=== PATIENT | female | born 1955 ===

== ENCOUNTER → 2016-04-21 | Day surgery (SDC) | payer OTHER ==
[2016-04-20 15:23] VITALS: Ht 157.5 cm; Wt 61.4 kg
[~2016-04-21] VITALS: Ht 157.5 cm; Wt 61.4 kg
[~2016-04-21] MED LIST: 500ML BSS 0.3ML EPI 1:1000PF IRRIG ONE; ACET-1325; ACETAMINOPHEN 325 MG TAB PO PRN; AMVISC PLUS 0.8ML SYRINGE INT OCU ONE; ATROPINE SULFATE 0.1 MG/ML 5ML SYR IV PRN; AcetaZOLAMIDE 250 MG TAB PO SCH; BETAXOLOL HCL 0.25% OP SUSP PER DROP CHARGE OPL SCH; BRIMONIDINE TART 0.2% OP SOLN PER DROP CHARGE ONE; BSS FLUSH ONE; ENDOCOAT 0.85ML SYRINGE INT OCU ONE; EpHEDrine SULFATE INJ 50 MG/ML AMP IV PRN; EpINEphrine INJ 1MG/ML AMP 1 MG/ML AMP ONE; FENTANYL CITRATE INJ 50 MCG/1 ML 2 ML VIAL IV PRN; FLUMAZENIL 0.1 MG/1 ML 10 ML VIAL IV PRN; FOLI1TAB7 PO; HYDROmorphone INJ 2 MG/ML SYR/VIAL IV PRN; LABETALOL HCL IV 5 MG/ML 20ML IV PRN; LACTATED RINGER'S 1000ML 500 ML IV SCH; LEVO125T4 PO; LIDOCAINE 4% OP SOLN DROP CHARGE ONE; LIDOCAINE 4% OP SOLN DROP CHARGE OPL SCH; LIDOCAINE HCL 1% MPF 2 ML VIAL ONE; MEPERIDINE HCL 25 MG/ML CARP IV PRN; METH2.5T PO; MIDAZOLAM HCL 1 MG/ML 2ML VIAL ONE; MINO100C22 PO; MIX: 4ML BSS 1ML EPI 1:1000 PF INSTIL ONE; MOXIFLOXACIN OPH SOLN PER DROP CHARGE ONE; NALOXONE HCL 0.4 MG/1 ML VIAL/CARP IV PRN; NAPR-1169 PO; OCUCOAT 1 ML SOLN IO ONE; OFLO0.3S OP; OMEP40CA PO; ONDANSETRON INJ 2 MG/ML 2 ML VIAL IV PRN; PHENYLEPHRINE 100MCG/ML 5ML SYR IV PRN; POVIDONE-IODINE OP SOLN 30 ML BTL ONE; PRED1SUS3 OPL; PROPARACAINE 0.5% OP SOLN PER DROP CHARGE OPL SCH; TOBRAMYCIN/DEXAMETHASONE OPH OINT PER APPLN CHARGE ONE
--- NOTE | 2016-04-21 11:43 | History & Physical Bridge - [place] ---
H&P Re-Evaluation Bridge Note: I have examined the patient, reviewed the History & Physical and in the interval since the performance of the History & Physical I have noted the following changes of clinical significance: No changes noted
[2016-04-21] MEDS: PHENYLEPHRINE HCL 2.5% OP SOLN PER DROP CHARGE OPL SCH ×2 (12:14→12:19)
[2016-04-21] MEDS: TROPICAMIDE 1% OP SOLN PER DROP CHARGE OPL SCH ×2 (12:15→12:20)
[2016-04-21] MEDS: CYCLOPENTOLATE HCL 1% OP SOLN PER DROP CHARGE OPL SCH ×2 (12:16→12:21)
[2016-04-21] MEDS: MOXIFLOXACIN OPH SOLN PER DROP CHARGE OPL SCH ×2 (12:17→12:22)
--- NOTE | 2016-04-21 13:06 | Discharge Instructions-SurgCtr ---
Discharge Instructions Visit Reason for Visit: Cataract Left Eye Discharge Goals Goal(s): Improve function Activity Recommendations Lifting Limitations: no more than 10 pounds Exercise/Sports Limitations: gradually increase as tolerated May Resume Sexual Activity: when tolerated Shower/Bathe: tomorrow Driving or Machine Use: resume 1 day after discharge Anesthesia . Post Anesthesia Instructions: If you have had General Anesthesia or IV Sedation: * Do not drive today. * Resume driving when surgeon permits. * Do not make important decisions or sign legal documents today. * Call surgeon for: 1. Temperature elevations greater than 101 degrees F. 2. Uncontrollable pain. 3. Excessive bleeding. 4. Persistent nausea and vomiting. 5. Medication intolerance (nausea, vomiting or rash). * For nausea and vomiting use only clear liquids such as: tea, soda, bouillon until nausea subsides, then gradually increase diet as tolerated. * If you have any concerns or questions, call your surgeon's office. If physician is unavailable and it is an emergency, call 911 or go to the nearest emergency room. . Instructions / Follow-Up Instructions / Follow-Up ACTIVITY RECOMMENDATIONS: * Light activities. * Mild irritation and blurred vision are common for the first few days. * You may walk outside, read, watch television. * Redness around the white part of the eye is common. MEDICATIONS: Resume previous medications unless instructed otherwise by your surgeon. * Take white Diamox (Acetazolamide) tablet at 4 pm today. Start all eye drops at 4 pm today: * Eye drops (today and tomorrow): Prednisone - one drop in operative eye every 3 hours while awake Ofloxacin - one drop in operative eye every 3 hours while awake SPECIAL CARE INSTRUCTIONS: * Tape plastic shield over eye to sleep at night. Call your doctor at with any concerns or problems. FOLLOW UP VISIT: Follow-up with Dr Carolina at [place] office as scheduled. Diet Recommendations Home Diet: resume previous diet Medical Emergencies . Who to Call and When: Medical Emergencies: If at any time you feel your situation is an emergency, please call 911 immediately. . Non-Emergent Contact . . "Provider Documentation" section prepared by Eusebio Carolina.
[2016-04-21] MEDS: VISCOAT 0.5ML SYRINGE INT OCU ONE (13:20)
--- NOTE | 2016-04-21 13:28 | [facility] Post Operative Brief Note ---
Immediate Operative Summary Operative Date Apr 21, 2016. Pre-Operative Diagnosis Cataract Left Eye Post-Operative Diagnosis Same Procedure(s) Performed Left Cataract Phacoemulsification With Intraocular Lens Implant Surgeon Dr. Carolina Cut Off Saw Set Up Operator Surgeon(s) None Estimated Blood Loss None Findings Cortical cataract left eye Fluids (cc crystalloids) 300 ml Specimens None Drains none Anesthesia L/S Complication(s) None Disposition Recovery Room / PACU
[2016-04-21 13:48] VITALS: BP 112/78; PULSE 79; TEMP 36.5; O2SAT 98
--- NOTE | 2016-04-21 13:52 | Anesthesia Progress Nt - [facility] ---
Anesthesia Post Op Note Date & Time Apr 21, 2016 at 13:52 Vital Signs Pain Intensity: 0 Vital Signs Past 12 Hours Date Time Temp Pulse Resp B/P Pulse Ox O2 Delivery O2 Flow Rate FiO2 04/21/16 13:30 36.1 65 16 122/79 99 Room Air 04/21/16 12:02 36.8 76 20 119/81 100 Room Air Notes Mental Status: alert / awake / arousable, participated in evaluation Pt Amnestic to Procedure: Yes Nausea / Vomiting: adequately controlled Pain: adequately controlled Airway Patency, RR, SpO2: stable & adequate BP & HR: stable & adequate Hydration State: stable & adequate Anesthetic Complications: no major complications apparent
--- NOTE | 2016-04-21 14:27 | OPERATIVE REPORT ---
DATE OF OPERATION: 04/21/2016 PREOPERATIVE DIAGNOSIS: Presenile cortical cataract, left eye. POSTOPERATIVE DIAGNOSIS: Same. PROCEDURE: Phacoemulsification of left cataract with posterior chamber lens implant, type Bausch \T\ Lomb, model Hoya iSert [id number], power +21.0 Diopters. ANESTHESIA: Local standby. SURGEON: Dr. Carolina. COMPLICATIONS: None. OPERATING TIME: 10 minutes. OPERATION AND FINDINGS: PROCEDURE: The left pupil was dilated. The anesthetic was administered using a left technique. The left eye was prepped and draped. A speculum was placed. A paracentesis was placed. The chamber was filled with Amvisc Plus and EndoCoat. Epinephrine solution was used. A clear corneal incision was formed. A capsulorrhexis was performed. The nucleus was hydrodissected. The lens was removed with phacoemulsification. Time was 1.63 seconds. The aspiration unit was used to remove the cortex. The capsule was filled with Amvisc Plus. The lens implant was folded and placed into the capsule. The incision was hydrated. The Amvisc was aspirated. The wound was secure. The chamber was deep. The pupil was round. Bromonidine and TobraDex ointment and Vigamox solution were placed. The speculum was removed. DISPOSITION: The patient was returned to the recovery room in stable condition. I attest to the content of the Intraoperative Record and any orders documented therein. Any exceptions are noted below. I attest to the content of the Intraoperative Record and any orders documented therein. Any exceptions are noted below. KYLE
== END | disposition home or self-care (01) ==
LOC: X.SURG 11:26
PROVIDERS: ATTEND Specialist
DX: H25.012 Cortical age-related cataract, left eye (principal)

== ENCOUNTER → 2016-05-26 | Day surgery (SDC) | payer OTHER ==
[2016-05-17 07:50] VITALS: Ht 157.5 cm; Wt 61.4 kg
[~2016-05-26] VITALS: Ht 157.5 cm; Wt 61.4 kg
[~2016-05-26] MED LIST changes: -BETAXOLOL HCL 0.25% OP SUSP PER DROP CHARGE OPL SCH; +BETAXOLOL HCL 0.25% OP SUSP PER DROP CHARGE OPR SCH; -ENDOCOAT 0.85ML SYRINGE INT OCU ONE; -FENTANYL CITRATE INJ 50 MCG/1 ML 2 ML VIAL IV PRN; -FLUMAZENIL 0.1 MG/1 ML 10 ML VIAL IV PRN; -HYDROmorphone INJ 2 MG/ML SYR/VIAL IV PRN; -LABETALOL HCL IV 5 MG/ML 20ML IV PRN; -LIDOCAINE 4% OP SOLN DROP CHARGE OPL SCH; +LIDOCAINE 4% OP SOLN DROP CHARGE OPR SCH; -MEPERIDINE HCL 25 MG/ML CARP IV PRN; -NALOXONE HCL 0.4 MG/1 ML VIAL/CARP IV PRN; -ONDANSETRON INJ 2 MG/ML 2 ML VIAL IV PRN; -PHENYLEPHRINE 100MCG/ML 5ML SYR IV PRN; -PROPARACAINE 0.5% OP SOLN PER DROP CHARGE OPL SCH; +PROPARACAINE 0.5% OP SOLN PER DROP CHARGE OPR SCH; +VISCOAT 0.5ML SYRINGE INT OCU ONE
[2016-05-26] MEDS: PHENYLEPHRINE HCL 2.5% OP SOLN PER DROP CHARGE OPR SCH ×2 (08:59→09:04)
[2016-05-26] MEDS: TROPICAMIDE 1% OP SOLN PER DROP CHARGE OPR SCH ×2 (09:00→09:05)
[2016-05-26] MEDS: CYCLOPENTOLATE HCL 1% OP SOLN PER DROP CHARGE OPR SCH ×2 (09:01→09:06)
[2016-05-26] MEDS: MOXIFLOXACIN OPH SOLN PER DROP CHARGE OPR SCH ×2 (09:02→09:12)
--- NOTE | 2016-05-26 09:59 | Discharge Instructions-SurgCtr ---
Discharge Instructions Visit Reason for Visit: Cataract Right Eye Discharge Discharge Diagnosis / Problem: lens implant right eye Discharge Goals Goal(s): Improve function Activity Recommendations Activity Limitations: resume your previous activity Lifting Limitations: no more than 10 pounds Exercise/Sports Limitations: gradually increase as tolerated May Resume Sexual Activity: when tolerated Shower/Bathe: tomorrow Driving or Machine Use: resume 1 day after discharge Anesthesia . Post Anesthesia Instructions: If you have had General Anesthesia or IV Sedation: * Do not drive today. * Resume driving when surgeon permits. * Do not make important decisions or sign legal documents today. * Call surgeon for: 1. Temperature elevations greater than 101 degrees F. 2. Uncontrollable pain. 3. Excessive bleeding. 4. Persistent nausea and vomiting. 5. Medication intolerance (nausea, vomiting or rash). * For nausea and vomiting use only clear liquids such as: tea, soda, bouillon until nausea subsides, then gradually increase diet as tolerated. * If you have any concerns or questions, call your surgeon's office. If physician is unavailable and it is an emergency, call 911 or go to the nearest emergency room. . Instructions / Follow-Up Instructions / Follow-Up ACTIVITY RECOMMENDATIONS: * Light activities. * Mild irritation and blurred vision are common for the first few days. * You may walk outside, read, watch television. * Redness around the white part of the eye is common. MEDICATIONS: Resume previous medications unless instructed otherwise by your surgeon. * Take white Diamox (Acetazolamide) tablet at 1 pm today. Start all eye drops at 1 pm today: * Eye drops (today and tomorrow): Prednisone - one drop in operative eye every 3 hours while awake Ofloxacin - one drop in operative eye every 3 hours while awake SPECIAL CARE INSTRUCTIONS: * Tape plastic shield over eye to sleep at night. Call your doctor at with any concerns or problems. FOLLOW UP VISIT: Follow-up with Dr Carolina at [place] office as scheduled. Diet Recommendations Home Diet: no limitations Procedures Procedures Performed: cataract extraction with lens implant Pending Studies Studies pending at discharge: no Medical Emergencies . Who to Call and When: Medical Emergencies: If at any time you feel your situation is an emergency, please call 911 immediately. . Non-Emergent Contact Non-Emergency issues call your: [place] Call Non-Emergent contact if: your pain is not controlled [phone] . . "Provider Documentation" section prepared by Eusebio Carolina.
--- NOTE | 2016-05-26 10:01 | [facility] Operative Report ---
Operative Report Date of Service May 26, 2016. Operative Report 1. PREOPERATIVE DIAGNOSIS: Pre Senile Cortical cataract, right eye. 2. POSTOPERATIVE DIAGNOSIS: Pre Senile Cortical cataract, right eye. 3. PROCEDURE: Phacoemulsification of right cataract with posterior chamber lens implant, type Bausch & Lomb, model Hoya [id number], power +21.5 diopters. ANESTHESIA: Local standby. SURGEON: Dr. Carolina. COMPLICATIONS: None. OPERATING TIME: 10 minutes. 4. OPERATION AND FINDINGS: DESCRIPTION OF PROCEDURE: The right pupil was dilated. The anesthetic was administered using a topical technique. The right eye was prepped and draped. A speculum was placed. A clear corneal incision was formed. The chamber was filled with Amvisc Plus and Viscoat. Epinephrine solution was used. A paracentesis was placed. A capsulorrhexis was performed. The nucleus was hydrodissected. The lens was removed with phacoemulsification. Time was 1.30 seconds. The aspiration unit was used to remove the cortex. The capsule was filled with Amvisc Plus. The lens implant was folded and placed into the capsule. The incision was hydrated. The Amvisc was aspirated. The wound was secure. The chamber was deep. The pupil was round. TobraDex ointment and Vigamox solution were placed. The speculum was removed. The patient was returned to the Recovery Room in stable condition. I attest to the content of the Intraoperative Record and any orders documented therein. Any exceptions are noted below. The scribe's documentation has been prepared in my presence, under my direction and personally reviewed by me in its entirety. I confirm that the note above accurately reflects all work, treatment, procedures, and medical decision making performed by me. I personally scribed for Eusebio Carolina M.D. ([facility]EL) on 05/26/16 at 10:01. Electronically submitted by Selam Layne ([facility]).
[2016-05-26 10:05] VITALS: TEMP 36.5
--- NOTE | 2016-05-26 10:19 | Anesthesia Progress Nt - [facility] ---
Anesthesia Post Op Note Date & Time May 26, 2016 at 10:19 Vital Signs Pain Intensity: 0 Vital Signs Past 12 Hours Date Time Temp Pulse Resp B/P Pulse Ox O2 Delivery O2 Flow Rate FiO2 05/26/16 10:05 36.5 73 16 131/82 98 Room Air 05/26/16 08:49 36.4 82 22 128/86 99 Room Air Notes Mental Status: alert / awake / arousable, participated in evaluation Pt Amnestic to Procedure: Yes Nausea / Vomiting: adequately controlled Pain: adequately controlled Airway Patency, RR, SpO2: stable & adequate BP & HR: stable & adequate Hydration State: stable & adequate Anesthetic Complications: no major complications apparent
[2016-05-26 10:22] VITALS: BP 120/78; PULSE 80; O2SAT 100
== END | disposition home or self-care (01) ==
LOC: X.SURG 08:38
PROVIDERS: ATTEND Specialist
DX: H25.011 Cortical age-related cataract, right eye (principal); M19.90 Unspecified osteoarthritis, unspecified site; Z68.25 Body mass index [BMI] 25.0-25.9, adult; Z98.42 Cataract extraction status, left eye; Z98.890 Other specified postprocedural states; Z87.891 Personal history of nicotine dependence

== ENCOUNTER 2020-05-06 19:05 | Observation (INO) ==
--- OUTSIDE RECORDS SUMMARY | 2020-05-06 19:07 | External Medical Summary | Continuity of Care Document ---
:1955 Author Name Ashly Quezada, Provider Address Unavailable Unavailable , Care Team Providers Name Role Phone Uma Bar[place] M.D.[place] [place] Problems:Rheumatoid arthritisEncounter for long-term (current) use of medications Problems Raynauds phenomenon (443.0) (I73.00) Encounter for long-term (current) use of medications (V58.69 ) (Z79.899) Rheumatoid arthritis (714.0) (M06.9) Arthritis (716.90) (M19.90) Osteoporosis (733.00) (M81.0) Hypothyroidism (244.9) (E03.9) Anemia (285.9) (D64.9) Pain in hand (729.5) (M79.643) Allergies and Adverse Reactions No Known Drug Allergies (Allergy) Medications Pantoprazole Sodium 40 MG Oral Tablet Delayed Release; TAKE 1 TABLET DAILY. Refills: 0 Levothyroxine Sodium 125 MCG Oral Tablet; TAKE 1 TABLET REJI Y. Refills: 0 Premarin 0.625 MG/GM Vaginal Cream Refills: 0 Calcium 600/Vitamin D CHEW Refills: 0 Stool Softener 100 MG Oral Capsule; TAKE 1 CAPSULE TWICE JOHNNA LY. Refills: 0 MiraLax POWD Refills: 0 Naproxen 500 MG Oral Tablet; TAKE 1 TABLET EVERY 12 HO URS WITH FOOD. Damien Barron Start: 03-Oct-2013 Quantity: 180 Refills: 1 Folic Acid 1 MG Oral Tablet; TAKE 1 TABLET DAILY. Damien Barron Start: 09-Nov-2013 Quantity: 90 Refills: 3 Methotrexate 2.5 MG Oral Tablet; TAKE 6 TABLETS EVERY WEEK Damien Sue Start: 09-Nov-2013 Quantity: 72 Refills: 1 Procedures History of Tubal Ligation Status: Comple alexx History of Breast Surgery Enlargement Procedure Status: Completed Immunizations Immunizations not documented Family History Unknown Family Member Family history of Cancer Status: Active Comments: Famil y History Family history of Diabetes Mellitus (V18.0) Status: Active Comments: Family History Family history of Hypertension (V17.49) Status: Active Comments: Family History Family history of Hypothyroidism Status: Active Comment s: Family History Family history of Heart Disease (V17.49) Status: Active Comments: Family History Social History - Smoking Status Ex-smoker Interventions InstructionsCall if: Your joints are red or painful.; Done: 03 Jun 2014Discussion/[id number] y.o. female with RAReviewed labs from Apr -- as has been her usual, inflammatory markers WNL; CBC and CMP grossly WNL. Had been concerned about possible lack of complete control of her RA sx with MTX monotherapy -- at this point, her joints actually appear significantly better with really no synovitis noted and subjective improvement reported by pt. Will continue with MTX 6 tablets weekly for now but did review with ptfindings which might suggest increase in medication regimen (prolonged AM stiffness, increased swelling, etc). She is aware to continue with monitoring labs every 8 weeks (CBC, CMP, ESR, CRP). She doeshave other pains in her hand still (DIP, thumb) which really seem most c/w OA; she is continuing on a daily Aleve for that. Pt is aware that I will be leaving the practice and that a formal letter willbe sent out shortly with recommendations for other rheumatologists with whom she may establish. Pt aware until I leave, she is welcome to call if anything new arises. Pt agreeable to plan. Plan of Treatment Planned Observations Planned Goals not documented Results No Known Results Results not documented Encounters Appointment; Uma Barron M.D. 03-Jun-2014 8:40 Encounter Diagnosis: Problem not documented
--- OUTSIDE RECORDS SUMMARY | 2020-05-06 19:08 | External Medical Summary | Continuity of Care Document ---
:1955 Author Name Ashly Quezada, Provider Address Unavailable Unavailable , Care Team Providers Name Role Phone Uma Barron M.D.@[email or web address] [place] Assessments Assessed Problems:Rheumatoid arthritisEncounter for long-term (current) use of medications Problems Anemia (285.9) (D64.9) Hypothyroidism (244.9) (E03.9) Osteoporosis (733.00) (M81.0) Arthritis (716.90) (M19.90) Raynauds phenomenon (443.0) (I73.00) Pain in hand (729.5) (M79.643) Rheumatoid arthritis (714.0) (M06.9) Encounter for long-term (current) use of medications (V58.69 ) (Z79.899) Allergies and Adverse Reactions No Known Drug [...] Barron Start: 03-Oct-2013 Quantity: 180 Refills: 1 Methotrexate 2.5 MG Oral Tablet; TAKE 6 TABLETS EVERY WEEK Damien Sue Start: 09-Nov-2013 Quantity: 72 Refills: 1 Folic Acid 1 MG Oral Tablet; TAKE 1 TABLET DAILY. Damien Barron Start: 09-Nov-2013 Quantity: 90 Refills: 3 Procedures History of Tubal Ligation Status: Comple [...] are red or painful.; Done: 03 Jun 2014Discussion/[id number] y.o. female with RAReviewed labs from Apr [...]
[2020-05-06] MEDS ORDERED: SODIUM CHLORIDE 0.9% 500 ML IV SCH (19:15)
[2020-05-06] MEDS ORDERED: ONDANSETRON INJ 2 MG/ML 2 ML VIAL IV STA (19:29)
[2020-05-06] MEDS ORDERED: HYDROmorphone INJ 0.5 MG/0.5 ML SYR IV PRN (19:29)
--- NOTE | 2020-05-06 19:31 | XRay Report ---
SINGLE VIEW CHEST CLINICAL HISTORY: Atypical chest pain. FINDINGS: An AP, portable, upright chest radiograph is compared to study dated 01/22/2010. The cardio mediastinal silhouette is unremarkable. There is mild elevation of the right hemidiaphragm and bibasi lar atelectasis. No airspace consolidation or large pleural effusion is identified. No pneumothorax i s seen. The skeletal structures are osteopenic. The bony thorax is grossly intact. Cholecystectomy cl ips are seen in the right upper quadrant. IMPRESSION: No active disease in the chest. ACT 112: Negative or not required by law. Electronically signed by: Tee Mccracken M.D. 05/06/2020 7:30 PM
[2020-05-06 19:33] LABS: Hematocrit (blood only) 42.1 % (37-47); Hemoglobin 14.9 g/dL (12.0-16.0); Immature Granulocytes # (auto) 0.02 K/uL (0.00-0.02); Immature Granulocytes % (auto) 0.2 %; Lymphocytes # (auto) 1.51 K/uL (1.2-3.4); Lymphocytes % (auto) 17.4 %; Mean Corpuscular Hgb Conc 35.4 g/dL (32-36); Mean Corpuscular Volume 90.3 fL (80-100); Mean Platelet Volume 10.6 fL (7.4-10.4); Monocytes # (auto) 0.32 K/uL (0.11-0.59); Monocytes % (auto) 3.7 %; Neutrophils # (auto) 6.85 K/uL (1.4-6.5); Neutrophils % (auto) 78.7 %; Platelet Count 223 K/uL (130-400); RDW Coefficient of Variation 12.1 % (11.5-14.5); RDW Standard Deviation 39.5 fL (36.4-46.3); Red Blood Count 4.66 M/uL (4.2-5.4)
--- NOTE | 2020-05-06 19:34 | Emergency Department Note ---
Impression & Plan Substernal chest pain ED Provider Note INFORMANT: Patient ED PROVIDER(S): Joon Morin MD CHIEF COMPLAINT: Chest pain PLAN: Disposition: Admitted Condition: Good Outpatient prescription management: none Referral: None MEDICAL DECISION MAKING: Patient presented complaining of substernal chest pain. She was evaluated. Her ECG did not reveal any acute findings. Chest x-ray was negative except for a scant amount of free air under the right hemidiaphragm consistent with her recen t surgery. She had a benign abdominal examination. Her CBC and chemistry panel were unremarkable. Troponin was within normal limits but not 0. The patient was treated with Zofran and Dilaudid. On reassessment she felt significantly better. Her blood pressure and tachycardia were significantly improved. The patient was hydrated. She was given oral aspirin. Given the chest pain and stress of recent surgery further management in the hospital was felt to be appropriate to rule out cardiac etiology. Consultation was made with Dr. Aldo Trent, [facility] hospitalist service. The patient was evaluated in the ER for further management. Triage Nursing notes reviewed and agree them. Vital Signs: reviewed and remarkable for retention and tachycardia Differential diagnosis: Postoperative pain, cardiac ischemia, aortic dissection, pulmonary embolism, pneumothorax, pneumonia, pericarditis, myocarditis, esophageal rupture, GERD, cholecystitis, pancreatitis, musculoskeletal, as well as other pathologies. Diagnostics interpreted by me: ECG: Twelve-lead ECG reveals sinus tachycardia 105 bpm. Left atrial enlargement. LVH present. No ST elevation or depression. No PVCs or PACs. Normal axis. Normal QRS. Cardiac Monitoring: Cardiac monitoring ordered by me: The patient was placed on continuous cardiac monitoring and observed. It revealed a normal sinus rhythm at 98 beats per minute without ectopy or evidence of dysrhythmia. Imaging studies: Imaging studies: Chest x-ray. Findings: A chest x-ray was performed and revealed no pneumothorax, effusion, infiltrate, pulmonary edema, or wide mediastinum. There is a scant amount of free air noted under the right hemidiaphragm. HPI: The patient is a 64 year old female who presents to the Emergency Room with complaints of social chest pain. This started this afternoon and is described as pressure. The patient also notes the following associated symptoms, nausea, vomiting, mild headache. The patient has tried a Percocet and Tylenol at home for relieving factors. Current pain is rated as 7/10. Patient had a cholecystectomy done at [facility] surgery center today. She went home and was feeling well. She began to have pain and headache. She took a Percocet and one Tylenol. The pain worsened. She came to the emergency department. She began to have nausea and vomiting in triage. Pt denies LOC, headache, fevers, chills, diaphoresis, visual changes, neck pain, breathing d ifficulties, abdominal pain, back pain, melena, hematochezia, urinary symptoms, numbness, weakness, lymphadenopathy, rash, or other complaints. ROS: See above HPI for pertinent positives & negatives. A total of 10 systems reviewed and were otherwise negative. PAST MEDICAL HISTORY:See Below , hypertension PAST SURGICAL HISTORY:See Below, cholecystectomy FAMILY HISTORY:See Below SOCIAL HISTORY:See Below, non-smoker HOME MEDICATIONS:See Below ALLERGIES:See Below VITALS:See Below PHYSICAL EXAMINATION: GENERAL: Awake, alert, uncomfortable-appearing, in mild distress HENT: Normocephalic, atraumatic. Oropharynx unremarkable. EYES: Normal conjunctiva. Sclera non-icteric. NECK: Inspection normal. Non-tender. Supple. No nuchal rigidity. FROM. No mas ses. RESPIRATORY: Clear to auscultation. No wheezes. No rales. Normal respiratory effort. CARDIAC: Tachycardic rate. Normal rhythm. No murmurs. No rubs. Extremities warm and well perfused. Pulses equal. No JVD. GI: Soft, non-distended. Minimal upper gas tenderness to palpation. No rebound or guarding. No masses. RECTAL: Deferred. MUSCULOSKELETAL: Atraumatic. Chest examination reveals no tenderness. The back is symmetrical on inspection without obvious abnormality. There is no CVA tenderness to palpation. No joint edema. LOWER EXTREMITIES: Calves are equal size bilaterally and non-tender. No edema. No discoloration. NEURO: Normal sensorium. No sensory or motor deficits noted. SKIN: No rash or jaundice noted. Joon Morin MD Past Med/Surg History Medical History (Updated 05/06/20 @ 21:36 by Vianey Saini PA-C) CREST syndrome Dyslipidemia Hypothyroidism Mixed connective tissue disease Rheumatoid arthritis Surgical History (Updated 05/06/20 @ 21:36 by Vianey Saini PA-C) History of breast implant History of cholecystectomy History of colonoscopy Family History (Updated 05/06/20 @ 21:34 by Vianey Saini PA-C) Other Heart disease Liver cancer Social History Smoking Status: Former smoker Smoking End Date: 2006; Hx Alcohol Use: Yes Alcohol type: wine Alcohol Intake Frequency: 2-3 x/Week Feels Safe at Home: Yes Allergies Allergies Allergy/AdvReac Type Severity Reaction Status Date / Time No Known Allergies Allergy Unknown UNKNOWN Verified 05/06/20 20:22 Home Meds Home Medications Medication Instructions Recorded Confirmed adalimumab [Humira Pen] 40 mg SUBCUT .Q2WK 05/06/20 05/06/20 calcium carbonate-vitamin D3 1 tab PO DAILY 05/06/20 05/06/20 [Calcium 600 + D(3)] docusate sodium [Colace] 100 mg PO BID 05/06/20 05/06/20 levothyroxine [Levoxyl] 125 mcg PO DAILY 05/06/20 05/06/20 multivitamin 1 tab PO DAILY 05/06/20 05/06/20 oxycodone-acetaminophen 1 tab PO Q6H PRN 05/06/20 05/06/20 pantoprazole 40 mg PO BID 05/06/20 05/06/20 Results & Data (ED) Vital Signs Vital Signs - 24 hr 05/06/20 19:07 05/06/20 19:19 05/06/20 19:23 Temperature 37.5 C Temperature Source Oral Pulse Rate 137 H 104 H 109 H Pulse Rate from SpO2 Sensor 104 H 110 H Respiratory Rate 16 20 15 Respiratory Effort / Characteristics Non-Labored Spontaneous Respiratory Depth Normal Respiratory Pattern Regular Blood Pressure 186/124 H 156/104 H 155/95 H Blood Pressure Mean 144 121 115 Pulse Oximetry 97 96 96 Oxygen Delivery Method Room Air Room Air Room Air Sepsis Recent Fever Within 48 Hours No Sepsis New/Unexplained Change in Mental Status No Sepsis Action Taken by Nursing No Action Required 05/06/20 19:27 05/06/20 20:30 05/06/20 20:39 Temperature Temperature Source Pulse Rate 87 86 Pulse Rate from SpO2 Sensor 87 86 Respiratory Rate 13 24 Respiratory Effort / Characteristics Respiratory Depth Respiratory Pattern Blood Pressure 125/79 Blood Pressure Mean 94 Pulse Oximetry 96 95 96 Oxygen Delivery Method Room Air Room Air Sepsis Recent Fever Within 48 Hours Sepsis New/Unexplained Change in Mental Status Sepsis Action Taken by Nursing 05/06/20 21:00 Temperature Temperature Source Pulse Rate 79 Pulse Rate from SpO2 Sensor 78 Respiratory Rate 15 Respiratory Effort / Characteristics Respiratory Depth Respiratory Pattern Blood Pressure 125/79 Blood Pressure Mean 94 Pulse Oximetry 95 Oxygen Delivery Method Sepsis Recent Fever Within 48 Hours Sepsis New/Unexplained Change in Mental Status Sepsis Action Taken by Nursing Laboratory Data Result diagrams: 05/06/20 19:20 05/06/20 19:20 Lab Results 05/06/20 05/06/20 05/06/20 Range/Units 19:20 19:20 19:20 WBC 8.70 (4.8-10.8) K/uL RBC 4.66 (4.2-5.4) M/uL Hgb 14.9 (12.0-16.0) g/dL Hct 42.1 (37-47) % MCV 90.3 (80-100) fL MCH 32.0 (25-34) pg MCHC 35.4 (32-36) g/dL RDW Std Deviation 39.5 (36.4-46.3) fL RDW Coeff of Kristie 12.1 (11.5-14.5) % Plt Count 223 (130-400) K/uL MPV 10.6 H (7.4-10.4) fL Immature Gran % (Auto) 0.2 % Neut % (Auto) 78.7 % Lymph % (Auto) 17.4 % Barbour % (Auto) 3.7 % Eos % (Auto) 0.0 % Baso % (Auto) 0.0 % Neut # (Auto) 6.85 H (1.4-6.5) K/uL Lymph # (Auto) 1.51 (1.2-3.4) K/uL Barbour # (Auto) 0.32 (0.11-0.59) K/uL Eos # (Auto) 0.00 (0-0.5) K/uL Baso # (Auto) 0.00 (0-0.2) K/uL Immature Gran # (Auto) 0.02 (0.00-0.02) K/uL APTT 26.8 (21.0-31.0) Seconds PTT Ratio 1.0 Sodium 136 (136-145) mmol/L Potassium 3.9 (3.5-5.1) mmol/L Chloride 102 (98-107) mmol/L Carbon Dioxide 25 (21-32) mmol/L Anion Gap 9.0 (3-11) BUN 8 (7-18) mg/dl Creatinine 0.83 (0.6-1.2) mg/dl Est Cr Clr Drug Dosing 54.2 ml/min Est GFR ( Amer) 86.4 Est GFR (Non-Af Amer) 74.5 BUN/Creatinine Ratio 9.2 L (10-20) Glucose 153 H (70-99) mg/dl Calcium 8.9 (8.5-10.1) mg/dl Total Bilirubin 0.3 (0.2-1) mg/dl AST 50 H (15-37) U/L ALT 67 (12-78) U/L Alkaline Phosphatase 85 (45-117) U/L Troponin I 0.032 (0-0.045) ng/ml Total Protein 8.7 H (6.4-8.2) gm/dl Albumin 4.3 (3.4-5.0) gm/dl Globulin 4.4 H (2.5-4.0) gm/dl Albumin/Globulin Ratio 1.0 (0.9-2) Lipase 45 L (73-393) U/L COVID-19 Eval Order SARS-CoV-2, RNA, NAAT (NEGATIVE) 05/06/20 05/06/20 Range/Units 21:14 21:14 WBC (4.8-10.8) K/uL RBC (4.2-5.4) M/uL Hgb (12.0-16.0) g/dL Hct (37-47) % MCV (80-100) fL MCH (25-34) pg MCHC (32-36) g/dL RDW Std Deviation (36.4-46.3) fL RDW Coeff of Kristie (11.5-14.5) % Plt Count (130-400) K/uL MPV (7.4-10.4) fL Immature Gran % (Auto) % Neut % (Auto) % Lymph % (Auto) % Barbour % (Auto) % Eos % (Auto) % Baso % (Auto) % Neut # (Auto) (1.4-6.5) K/uL Lymph # (Auto) (1.2-3.4) K/uL Barbour # (Auto) (0.11-0.59) K/uL Eos # (Auto) (0-0.5) K/uL Baso # (Auto) (0-0.2) K/uL Immature Gran # (Auto) (0.00-0.02) K/uL APTT (21.0-31.0) Seconds PTT Ratio Sodium (136-145) mmol/L Potassium (3.5-5.1) mmol/L Chloride (98-107) mmol/L Carbon Dioxide (21-32) mmol/L Anion Gap (3-11) BUN (7-18) mg/dl Creatinine (0.6-1.2) mg/dl Est Cr Clr Drug Dosing ml/min Est GFR ( Amer) Est GFR (Non-Af Amer) BUN/Creatinine Ratio (10-20) Glucose (70-99) mg/dl Calcium (8.5-10.1) mg/dl Total Bilirubin (0.2-1) mg/dl AST (15-37) U/L ALT (12-78) U/L Alkaline Phosphatase (45-117) U/L Troponin I (0-0.045) ng/ml Total Protein (6.4-8.2) gm/dl Albumin (3.4-5.0) gm/dl Globulin (2.5-4.0) gm/dl Albumin/Globulin Ratio (0.9-2) Lipase (73-393) U/L COVID[facility]19 [facility], RNA, NAAT NEGATIVE (NEGATIVE) Administered Medications Discontinued Medications Aspirin (Aspirin Chew 324 Mg) 324 mg PO NOW STA Stop: 05/06/20 20:59 Last Admin: 05/06/20 21:13 Dose: 324 mg Documented by: [id number] Hydromorphone HCl (Hydromorphone Inj 0.5 Mg/0.5 Ml Syr) 0.5 mg IV Q15M PRN PRN Reason: Pain Stop: 05/20/20 19:28 Last Admin: 05/06/20 19:35 Dose: 0.5 mg Documented by: [id number] Sodium Chloride (Nss) 500 mls @ 999 mls/hr IV .Q31M RYAN Stop: 02/02/21 19:45 Last Infusion: 05/06/20 19:56 Dose: 0 mls/hr Documented by: [id number] Admin: 05/06/20 19:26 Dose: 999 mls/hr Documented by: [id number] Ondansetron HCl (Ondansetron Inj 2 Mg/Ml 2 Ml Vial) 4 mg IV NOW STA Stop: 05/06/20 19:30 Last Admin: 05/06/20 19:35 Dose: 4 mg Documented by: [id number] Discharge Plan Visit Data Chief Complaint: Chest Pain Stated Complaint: CHEST PAIN ED Provider: Joon Morin Discharge Problem: Substernal chest pain Forms Stand Alone Forms: [facility] [employer] Prescriptions Prescriptions: No Action multivitamin Tablet 1 tab PO DAILY RF: 0 calcium carbonate-vitamin D3 [Calcium 600 + D(3)] 600 mg(1,500mg) -200 unit Tablet 1 tab PO DAILY RF: 0 pantoprazole 40 mg tablet,delayed release (DR/EC) 40 mg PO BID RF: 0 levothyroxine [Levoxyl] 125 mcg tablet 125 mcg PO DAILY RF: 0 Humira Pen 40 mg/0.8 mL pen injector kit 40 mg SUBCUT .Q2WK RF: 0 oxycodone-acetaminophen 5-325 mg Tablet 1 tab PO Q6H PRN (Reason: Pain) RF: 0 docusate sodium [Colace] 100 mg Capsule 100 mg PO BID RF: 0
[2020-05-06 19:50] LABS: Albumin Level 4.3 gm/dl (3.4-5.0); BUN Creatinine Ratio 9.2 (10-20); Calcium 8.9 mg/dl (8.5-10.1); Creatinine Clr Calc Pharmacy 54.2 ml/min; Est GFR (African American) 86.4; Est GFR (Non-African American) 74.5; Potassium 3.9 mmol/L (3.5-5.1)
[2020-05-06 19:55] LABS: Bilirubin,Total 0.3 mg/dl (0.2-1); Globulin 4.4 gm/dl (2.5-4.0); Total Protein 8.7 gm/dl (6.4-8.2); Troponin I 0.032 ng/ml (0-0.045)
[2020-05-06] MEDS ORDERED: ASPIRIN CHEW 324 MG PO STA (20:58)
[2020-05-06] MEDS ORDERED: NITROGLYCERIN SL 0.4 MG/TAB TAB SL PRN (21:07)
--- NOTE | 2020-05-06 21:26 | History & Physical Report ---
Date of Service May 06, 2020 Assessment & Plan (1) Chest pain: (2) S/P cholecystectomy: (3) Dyslipidemia: (4) Rheumatoid arthritis: (5) Mixed connective tissue disease: (6) CREST syndrome: (7) Hypothyroidism: This is a 64-year-old female with PMH of mixed connective tissue disorder, rheumatoid arthritis, crest syndrome, hypothyroidism, dyslipidemia and cholecystectomy performed earlier today who presents with chest pain. Please see Dr. Trent's addendum for assessment and plan. History of Present Illness Chief Complaint: Chest pain Primary Care Provider: Michael Cristobal MD This is a 64-year-old female with PMH of mixed connective tissue disorder, rheumatoid arthritis, crest syndrome, hypothyroidism, dyslipidemia and c holecystectomy performed earlier today who presents with chest pain. Underwent laparoscopic cholecystectomy earlier today at outpatient surgery center in [facility]. Was resting at home this afternoon when took her blood pressure and noted it was elevated. Developed left-sided sharp 7/10 chest pain without radiation that was constant. Took a tylenol and percocet with some improvement. Also took 2.5mg Amlodipine that she had been prescribed awhile ago for episodes of high BP. Also noted headache, lightheadedness and nausea. Had 3 episodes of emesis, including 1 in triage of ED. States she is had chest pain like this intermittently in the past and usually occurs at rest. Also with history of heartburn but states this is different. No known history of CAD. + Family history of heart disease in grandfather. Former smoker, quit in 2006. Denies fever, chills, near syncope, palpitations, shortness of breath, dysuria, diarrhea or constipation. In ED, given aspirin 324, 0.5 mg IV Dilaudid, nitroglycerin, Zofran and 500 mL normal saline with resolution of pain. No leukocytosis. Hemoglobin stable. Initial troponin 0 0.032. EKG with sinus tachycardia 105 with possible left atrial enlargement and LVH. Allergies Allergy/AdvReac Type Severity Reaction Status Date / Time No Known Allergies Allergy Unknown UNKNOWN Verified 05/06/20 20:22 Home Medications Medication Instructions Recorded Confirmed Type adalimumab [Humira Pen] 40 mg SUBCUT .Q2WK 05/06/20 05/06/20 History amlodipine 2.5 mg PO DAILY 05/06/20 05/06/20 History calcium carbonate-vitamin D3 1 tab PO DAILY 05/06/20 05/06/20 History [Calcium 600 + D(3)] docusate sodium [Colace] 100 mg PO BID 05/06/20 05/06/20 History levothyroxine [Levoxyl] 125 mcg PO DAILY 05/06/20 05/06/20 History multivitamin 1 tab PO DAILY 05/06/20 05/06/20 History oxycodone-acetaminophen 1 tab PO Q6H PRN 05/06/20 05/06/20 History pantoprazole 40 mg PO BID 05/06/20 05/06/20 History Past Med/Surg History Medical History (Updated 05/06/20 @ 22:08 by Vianey Saini PA-C) CREST syndrome Dyslipidemia Hypothyroidism Mixed connective tissue disease Rheumatoid arthritis Surgical History (Updated 05/06/20 @ 22:08 by Vianey Saini PA-C) History of breast implant removal History of cholecystectomy History of colonoscopy Family History (Updated 05/06/20 @ 21:34 by Vianey Saini PA-C) Other Heart disease Liver cancer Social History Smoking Status: Former smoker Smoking End Date: 2006; Hx Alcohol Use: Yes Alcohol type: wine Alcohol Intake Frequency: 2-3 x/Week Feels Safe at Home: Yes Review of Systems Review of Systems: At least ten systems reviewed and negative except as noted in the HPI. Physical Exam Physical Exam: General Appearance: WD/WN, vitals as above, appears uncomfortable, sitting up in bed, conversing easily Head: normocephalic, atraumatic Eyes: normal inspection, PERRL, conjunctivae normal, anicteric sclerae ENT: external ear and nose normal, oropharynx normal Neck: normal visual inspection, trachea midline, no thyromegaly Respiratory: normal respiratory effort, lungs clear to auscultation, no wheeze, rales, rhonchi. No accessory muscle use Cardiovascular: regular rate, rhythm, no murmur, normal peripheral pulses, no BLE edema. Vessels: no JVD Chest: normal inspection of chest, no chest tenderness to palpation Abdomen/GI: normal bowel sounds, soft, no hepatosplenomegaly. + Small laparoscopic incisions with dressings in place Extremities/Musculoskeletal: no cyanosis or clubbing, extremities motor strength 5/5 Neurologic: PERRL, EOMI, accommodation nl, no face palsy, no dysarthria, CN's II-XI intact bilaterally and moves all extremities Psychiatric: A+Ox3, anxious Skin: no rashes, normal color, warm/dry Results & Data Results & Data ([facility]) Vital Signs (Past 12 Hours) Vital Signs Temp Pulse Resp BP Pulse Ox 05/06/20 20:39 86 24 125/79 96 05/06/20 20:30 87 13 95 05/06/20 19:27 96 05/06/20 19:23 109 H 15 155/95 H 96 05/06/20 19:19 104 H 20 156/104 H 96 05/06/20 19:07 37.5 C 137 H 16 186/124 H 97 Laboratory Results Short CBC 05/06/20 05/06/20 Range/Units 19:20 19:20 WBC 8.70 (4.8-10.8) K/uL Hgb 14.9 (12.0-16.0) g/dL Hct 42.1 (37-47) % Plt Count 223 (130-400) K/uL Troponin I 0.032 (0-0.045) ng/ml BMP 05/06/20 19:20 Sodium 136 Potassium 3.9 Chloride 102 Carbon Dioxide 25 BUN 8 Creatinine 0.83 Glucose 153 H Calcium 8.9 Cardiac Enzymes 05/06/20 Range/Units 19:20 Troponin I 0.032 (0-0.045) ng/ml Liver Function 05/06/20 Range/Units 19:20 Total Bilirubin 0.3 (0.2-1) mg/dl AST 50 H (15-37) U/L ALT 67 (12-78) U/L Alkaline Phosphatase 85 (45-117) U/L Albumin 4.3 (3.4-5.0) gm/dl Diagnostic Findings CXR: IMPRESSION: No active disease in the chest. ECG Rhythm: sinus tachycardia Additional Comments: LVH Supervising Physician Co-Signing Physician Notes IM ATTENDING : Patient seen and examined. History obtained from patient and records. Preceding documentation by Ms. Vianey Saini PA-C reviewed. FINAL ASSESSMENT AND PLAN as follows : Chest pain plus minimal troponin elevation Secondary to hypertensive crisis hx HTN diagnosed last month. Patient stopped amlodipine 2 weeks ago because of blood pressure was already controlled. Headache secondary to uncontrolled hypertension MCTD (history rheumatoid arthritis, CREST) Recent cholecystectomy Hyperglycemia, rule out DM Past tobacco abuse OBS PCU Resume Amlodipine Rx. TTE, Cardiology consult, chest pain with troponin elevation Check hemoglobin A1c DVT prophylaxis. SCDs RE recent surgery Full code Text document was generated using [employer] voice recognition software. It may contain grammatical or spelling errors. Kindly contact undersigned for clarification of any documentation item in question.
[2020-05-06 22:01] LABS: Partial Thromboplastin Time 26.8 Seconds (21.0-31.0)
[2020-05-06] MEDS ORDERED: fentaNYL citrate 100 MCG/2 ML VIAL IV STA (22:36)
[2020-05-06] MEDS ORDERED: fentaNYL citrate 100 MCG/2 ML VIAL ONE (22:41)
[2020-05-06] MEDS ORDERED: oxyCODONE HCL IR 5 MG TAB (IMMEDIATE RELEASE) PO PRN (23:00)
[2020-05-06] MEDS ORDERED: OPTIRAY 320 125ml IV ONE (23:26)
[2020-05-06 23:28] LABS: Magnesium 1.9 mg/dl (1.8-2.4); Thyroid Stimulating Hormone 0.688 uIu/ml (0.300-4.500); Troponin I 0.03 ng/ml (0-0.045)
[2020-05-07] MEDS ORDERED: MoRPHine SULFATE 4 MG/ML 1 ML CARP\\VIAL IV PRN (00:14)
[2020-05-07] MEDS ORDERED: MAGNESIUM SULFATE / D5W 1 GM/100 ML BAG IV ONE (00:14)
[2020-05-07] MEDS ORDERED: NSS + 20MEQ KCL 20 MEQ/1,000 ML BAG IV SCH (00:14)
[2020-05-07] MEDS ORDERED: PROMETHAZINE HCL 12.5 MG in SODIUM CHLORIDE 0.9% 50 ML IV PRN (00:14)
[2020-05-07] MEDS ORDERED: ACETAMINOPHEN 325 MG TAB PO PRN (00:14)
[2020-05-07] MEDS ORDERED: LORazepam 0.25 MG/0.5 ML VIAL IV PRN (00:14)
[2020-05-07] MEDS ORDERED: NSS + 20MEQ KCL 20 MEQ/1,000 ML BAG IV ONE (00:27)
[2020-05-07] MEDS ORDERED: amLODIPine BESYLATE 5 MG TAB PO SCH ×2 (00:30→09:00)
[2020-05-07 04:46] LABS: Basophils # (auto) 0.01 K/uL (0-0.2); Basophils % (auto) 0.1 %; Eosinophils # (auto) 0.01 K/uL (0-0.5); Eosinophils % (auto) 0.1 %; Hematocrit (blood only) 38.2 % (37-47); Hemoglobin 13.5 g/dL (12.0-16.0); Immature Granulocytes # (auto) 0.02 K/uL (0.00-0.02); Immature Granulocytes % (auto) 0.2 %; Lymphocytes # (auto) 2.53 K/uL (1.2-3.4); Lymphocytes % (auto) 26.4 %; Mean Corpuscular Hgb Conc 35.3 g/dL (32-36); Mean Corpuscular Volume 90.5 fL (80-100); Mean Platelet Volume 10.4 fL (7.4-10.4); Monocytes # (auto) 0.96 K/uL (0.11-0.59); Neutrophils # (auto) 6.06 K/uL (1.4-6.5); Neutrophils % (auto) 63.2 %; Platelet Count 238 K/uL (130-400); RDW Coefficient of Variation 12.1 % (11.5-14.5); RDW Standard Deviation 40.3 fL (36.4-46.3); Red Blood Count 4.22 M/uL (4.2-5.4); White Blood Count 9.59 K/uL (4.8-10.8)
[2020-05-07 05:14] LABS: BUN Creatinine Ratio 9.1 (10-20); Calcium 8.7 mg/dl (8.5-10.1); Creatinine Clr Calc Pharmacy 62.7 ml/min; Est GFR (African American) 91.7; Est GFR (Non-African American) 79.1; Potassium 4.3 mmol/L (3.5-5.1)
[2020-05-07 06:17] LABS: Estimated Average Glucose 120 mg/dl; Hemoglobin A1C 5.8 % (4.5-5.6)
[2020-05-07] MEDS ORDERED: LEVOTHYROXINE SODIUM 125 MCG TABLET PO SCH (06:30)
--- NOTE | 2020-05-07 06:52 | CT Scan Report ---
CT head/brain wo con CLINICAL HISTORY: 64 years-old Female with reyes. Acute headache TECHNIQUE: Multiple axial CT images of the head were obtained without contrast. A dose lowering tech nique was utilized adhering to the principles of ALARA. CT DOSE: 537.48 mGy.cm COMPARISON: None. FINDINGS: No acute intracranial hemorrhage, midline shift, intracranial mass, hydrocephalus, territorial ischem ia or abnormal extra-axial collection. Mild age-related involutional changes. The calvarium is intact. Trace mastoid effusions. Mild mucosal thickening of the ethmoid air cells. Skull and soft tissues are unremarkable. IMPRESSION: No acute intracranial abnormality. ACT 112: Negative or not required by law. The above report was generated using voice recognition software. It may contain grammatical, syntax o r spelling errors. Electronically signed by: Stanley Kathleen M.D. 05/07/2020 6:51 AM
--- NOTE | 2020-05-07 06:59 | Hospitalist Progress Note ---
Date of Service May 07, 2020 Assessment & Plan (1) Chest pain: (2) S/P cholecystectomy: (3) Dyslipidemia: (4) Rheumatoid arthritis: (5) Mixed connective tissue disease: (6) CREST syndrome: (7) Hypothyroidism: This is a 64-year-old female with PMH of mixed connective tissue disorder, rheumatoid arthritis, crest syndrome, hypothyroidism, dyslipidemia and cholecystectomy performed earlier today who presents with chest pain. Chest pain plus minimal troponin elevation Secondary to hypertensive crisis hx HTN diagnosed last month. Patient stopped amlodipine 2 weeks ago because of blood pressure was already controlled. TTE, Cardiology consult, chest pain with troponin elevation Echo obtained and reviewed -left ventricle is normal in size. Mild concentric LVH. LV wall motion is normal. EF 60 to 65%. There is no valvular disease. No pericardial effusion. Resume Amlodipine Rx. Per marble cleaner recommendation - will d/c on 5 mg amlodipine daily Hyperlipidemia - TC 222 - LDL 142 - recommend to follow up on HLD w/ outpt provider once pt recovers from surgery Headache secondary to uncontrolled hypertension, now resolved MCTD (history rheumatoid arthritis, CREST) Recent cholecystectomy, follow up as per surg. recommendations Hyperglycemia, rule out DM Current hemoglobin A1c 5.8%, c/w prediabetes - follow up w/ PCP Past tobacco abuse DVT prophylaxis. SCDs RE recent surgery Full code Admission and Anticipated Discharge Date Admission Date: May 06, 2020 Subjective Pt seen in follow up of atypical chest pain. Currently feeling well and has no complaints. Seen by cardiology and echo was obtained. recommend to increase amlodipine for blood pressure control. Review of Systems Review of Systems: All systems reviewed & are unremarkable except as noted in HPI & below Constitutional: no fever and no chills Respiratory: no cough and no dyspnea Cardiovascular: no chest pain, no palpitations and no edema Gastrointestinal: + abdominal pain (s/p surgery as expected but minimal); no nausea and no vomiting Physical Exam Physical Exam: General Appearance: WD/WN, in NAD, sitting up in bed, conversing easily Head: normocephalic, atraumatic Eyes: normal inspection, PERRL, EOMI, conjunctivae normal, anicteric sclerae ENT: external ear and nose normal, oropharynx normal Neck: normal visual inspection, trachea midline, no thyromegaly Respiratory: normal respiratory effort, lungs clear to auscultation, no wheeze, rales, rhonchi. No accessory muscle use Cardiovascular: regular rate, rhythm, no murmur, normal peripheral pulses, no BLE edema. Vessels: no JVD Chest: normal inspection of chest, no chest tenderness to palpation Abdomen/GI: normal bowel sounds, soft, + Small laparoscopic incisions with dressings in place Extremities/Musculoskeletal: no cyanosis or clubbing, extremities motor strength 5/5 Neurologic: PERRL, EOMI, no face palsy, no dysarthria, CN's II-XI intact bilaterally and moves all extremities Psychiatric: A+Ox3, anxious Skin: no rashes, normal color, warm/dry Results & Data Results & Data ([facility]) Vital Signs (Past 12 Hours) Vital Signs Temp Pulse Pulse Pulse Resp BP BP 05/07/20 04:12 36.8 C 05/07/20 04:11 70 16 117/65 05/07/20 01:12 66 18 123/77 05/07/20 00:17 36.7 C 83 20 154/90 H 05/07/20 00:12 80 19 154/90 H 05/07/20 00:01 77 16 119/79 05/06/20 23:31 86 16 05/06/20 22:33 82 16 05/06/20 20:39 86 24 125/79 05/06/20 20:30 87 13 05/06/20 19:27 05/06/20 19:23 109 H 15 155/95 H 05/06/20 19:19 104 H 20 156/104 H 05/06/20 19:07 37.5 C 137 H 16 186/124 H BP Pulse Ox 05/07/20 04:12 05/07/20 04:11 96 05/07/20 01:12 97 05/07/20 00:17 97 05/07/20 00:12 98 05/07/20 00:01 94 05/06/20 23:31 130/87 95 05/06/20 22:33 140/92 97 05/06/20 20:39 96 05/06/20 20:30 95 05/06/20 19:27 96 05/06/20 19:23 96 05/06/20 19:19 96 05/06/20 19:07 97 Laboratory Results 05/07/20 05/07/20 05/07/20 Range/Units 04:32 04:32 00:30 WBC 9.59 (4.8-10.8) K/uL RBC 4.22 (4.2-5.4) M/uL Hgb 13.5 (12.0-16.0) g/dL Hct 38.2 (37-47) % MCV 90.5 (80-100) fL MCH 32.0 (25-34) pg MCHC 35.3 (32-36) g/dL RDW Std Deviation 40.3 (36.4-46.3) fL RDW Coeff of Kristie 12.1 (11.5-14.5) % Plt Count 238 (130-400) K/uL MPV 10.4 (7.4-10.4) fL Immature Gran % (Auto) 0.2 % Neut % (Auto) 63.2 % Lymph % (Auto) 26.4 % [place] % (Auto) 10.0 % Eos % (Auto) 0.1 % Baso % (Auto) 0.1 % Neut # (Auto) 6.06 (1.4-6.5) K/uL Lymph # (Auto) 2.53 (1.2-3.4) K/uL [place] # (Auto) 0.96 H (0.11-0.59) K/uL Eos # (Auto) 0.01 (0-0.5) K/uL Baso # (Auto) 0.01 (0-0.2) K/uL Immature Gran # (Auto) 0.02 (0.00-0.02) K/uL APTT (21.0-31.0) Seconds PTT Ratio Sodium 138 (136-145) mmol/L Potassium 4.3 (3.5-5.1) mmol/L Chloride 105 (98-107) mmol/L Carbon Dioxide 29 (21-32) mmol/L Anion Gap 4.0 (3-11) BUN 7 (7-18) mg/dl Creatinine 0.79 (0.6-1.2) mg/dl Est Cr Clr Drug Dosing 62.7 ml/min Est GFR ( Amer) 91.7 Est GFR (Non-Af Amer) 79.1 BUN/Creatinine Ratio 9.1 L (10-20) Glucose 101 H (70-99) mg/dl Estimat Average Glucose mg/dl Hemoglobin A1c (4.5-5.6) % Calcium 8.7 (8.5-10.1) mg/dl Magnesium (1.8-2.4) mg/dl Total Bilirubin (0.2-1) mg/dl AST (15-37) U/L ALT (12-78) U/L Alkaline Phosphatase (45-117) U/L Troponin I (0-0.045) ng/ml Total Protein (6.4-8.2) gm/dl Albumin (3.4-5.0) gm/dl Globulin (2.5-4.0) gm/dl Albumin/Globulin Ratio (0.9-2) Triglycerides 171 H (0-150) mg/dl Cholesterol 222 H (0-200) mg/dl LDL Cholesterol, Calc 142 mg/dl VLDL Cholesterol, Calc 34 mg/dl HDL Cholesterol 46 mg/dl Cholesterol/HDL Ratio 5 Lipase (73-393) U/L TSH (0.300-4.500) uIu/ml Nasal Screen MRSA (PCR) Negative (Negative) COVID-19 Eval Order SARS-CoV-2, RNA, NAAT (NEGATIVE) 05/06/20 05/06/20 05/06/20 Range/Units 22:40 21:14 21:14 WBC (4.8-10.8) K/uL RBC (4.2-5.4) M/uL Hgb (12.0-16.0) g/dL Hct (37-47) % MCV (80-100) fL MCH (25-34) pg MCHC (32-36) g/dL RDW Std Deviation (36.4-46.3) fL RDW Coeff of Kristie (11.5-14.5) % Plt Count (130-400) K/uL MPV (7.4-10.4) fL Immature Gran % (Auto) % Neut % (Auto) % Lymph % (Auto) % [place] % (Auto) % Eos % (Auto) % Baso % (Auto) % Neut # (Auto) (1.4-6.5) K/uL Lymph # (Auto) (1.2-3.4) K/uL [place] # (Auto) (0.11-0.59) K/uL Eos # (Auto) (0-0.5) K/uL Baso # (Auto) (0-0.2) K/uL Immature Gran # (Auto) (0.00-0.02) K/uL APTT (21.0-31.0) Seconds PTT Ratio Sodium (136-145) mmol/L Potassium (3.5-5.1) mmol/L Chloride (98-107) mmol/L Carbon Dioxide (21-32) mmol/L Anion Gap (3-11) BUN (7-18) mg/dl Creatinine (0.6-1.2) mg/dl Est Cr Clr Drug Dosing ml/min Est GFR ( Amer) Est GFR (Non-Af Amer) BUN/Creatinine Ratio (10-20) Glucose (70-99) mg/dl Estimat Average Glucose mg/dl Hemoglobin A1c (4.5-5.6) % Calcium (8.5-10.1) mg/dl Magnesium 1.9 (1.8-2.4) mg/dl Total Bilirubin (0.2-1) mg/dl AST (15-37) U/L ALT (12-78) U/L Alkaline Phosphatase (45-117) U/L Troponin I 0.030 (0-0.045) ng/ml Total Protein (6.4-8.2) gm/dl Albumin (3.4-5.0) gm/dl Globulin (2.5-4.0) gm/dl Albumin/Globulin Ratio (0.9-2) Triglycerides (0-150) mg/dl Cholesterol (0-200) mg/dl LDL Cholesterol, Calc mg/dl VLDL Cholesterol, Calc mg/dl HDL Cholesterol mg/dl Cholesterol/HDL Ratio Lipase (73-393) U/L TSH 0.688 (0.300-4.500) uIu/ml Nasal Screen MRSA (PCR) (Negative) COVID-19 Eval Order Covid19 IDNow [facility] SARS-CoV-2, RNA, NAAT NEGATIVE (NEGATIVE) 05/06/20 05/06/20 05/06/20 Range/Units 19:20 19:20 19:20 WBC (4.8-10.8) K/uL RBC (4.2-5.4) M/uL Hgb (12.0-16.0) g/dL Hct (37-47) % MCV (80-100) fL MCH (25-34) pg MCHC (32-36) g/dL RDW Std Deviation (36.4-46.3) fL RDW Coeff of Kristie (11.5-14.5) % Plt Count (130-400) K/uL MPV (7.4-10.4) fL Immature Gran % (Auto) % Neut % (Auto) % Lymph % (Auto) % [place] % (Auto) % Eos % (Auto) % Baso % (Auto) % Neut # (Auto) (1.4-6.5) K/uL Lymph # (Auto) (1.2-3.4) K/uL [place] # (Auto) (0.11-0.59) K/uL Eos # (Auto) (0-0.5) K/uL Baso # (Auto) (0-0.2) K/uL Immature Gran # (Auto) (0.00-0.02) K/uL APTT 26.8 (21.0-31.0) Seconds PTT Ratio 1.0 Sodium 136 (136-145) mmol/L Potassium 3.9 (3.5-5.1) mmol/L Chloride 102 (98-107) mmol/L Carbon Dioxide 25 (21-32) mmol/L Anion Gap 9.0 (3-11) BUN 8 (7-18) mg/dl Creatinine 0.83 (0.6-1.2) mg/dl Est Cr Clr Drug Dosing 54.2 ml/min Est GFR ( Amer) 86.4 Est GFR (Non-Af Amer) 74.5 BUN/Creatinine Ratio 9.2 L (10-20) Glucose 153 H (70-99) mg/dl Estimat Average Glucose 120 mg/dl Hemoglobin A1c 5.8 H (4.5-5.6) % Calcium 8.9 (8.5-10.1) mg/dl Magnesium (1.8-2.4) mg/dl Total Bilirubin 0.3 (0.2-1) mg/dl AST 50 H (15-37) U/L ALT 67 (12-78) U/L Alkaline Phosphatase 85 (45-117) U/L Troponin I 0.032 (0-0.045) ng/ml Total Protein 8.7 H (6.4-8.2) gm/dl Albumin 4.3 (3.4-5.0) gm/dl Globulin 4.4 H (2.5-4.0) gm/dl Albumin/Globulin Ratio 1.0 (0.9-2) Triglycerides (0-150) mg/dl Cholesterol (0-200) mg/dl LDL Cholesterol, Calc mg/dl VLDL Cholesterol, Calc mg/dl HDL Cholesterol mg/dl Cholesterol/HDL Ratio Lipase 45 L (73-393) U/L TSH (0.300-4.500) uIu/ml Nasal Screen MRSA (PCR) (Negative) COVID-19 Eval Order SARS-CoV-2, RNA, NAAT (NEGATIVE) 05/06/20 Range/Units 19:20 WBC 8.70 (4.8-10.8) K/uL RBC 4.66 (4.2-5.4) M/uL Hgb 14.9 (12.0-16.0) g/dL Hct 42.1 (37-47) % MCV 90.3 (80-100) fL MCH 32.0 (25-34) pg MCHC 35.4 (32-36) g/dL RDW Std Deviation 39.5 (36.4-46.3) fL RDW Coeff of Kristie 12.1 (11.5-14.5) % Plt Count 223 (130-400) K/uL MPV 10.6 H (7.4-10.4) fL Immature Gran % (Auto) 0.2 % Neut % (Auto) 78.7 % Lymph % (Auto) 17.4 % [place] % (Auto) 3.7 % Eos % (Auto) 0.0 % Baso % (Auto) 0.0 % Neut # (Auto) 6.85 H (1.4-6.5) K/uL Lymph # (Auto) 1.51 (1.2-3.4) K/uL [place] # (Auto) 0.32 (0.11-0.59) K/uL Eos # (Auto) 0.00 (0-0.5) K/uL Baso # (Auto) 0.00 (0-0.2) K/uL Immature Gran # (Auto) 0.02 (0.00-0.02) K/uL APTT (21.0-31.0) Seconds PTT Ratio Sodium (136-145) mmol/L Potassium (3.5-5.1) mmol/L Chloride (98-107) mmol/L Carbon Dioxide (21-32) mmol/L Anion Gap (3-11) BUN (7-18) mg/dl Creatinine (0.6-1.2) mg/dl Est Cr Clr Drug Dosing ml/min Est GFR ( Amer) Est GFR (Non-Af Amer) BUN/Creatinine Ratio (10-20) Glucose (70-99) mg/dl Estimat Average Glucose mg/dl Hemoglobin A1c (4.5-5.6) % Calcium (8.5-10.1) mg/dl Magnesium (1.8-2.4) mg/dl Total Bilirubin (0.2-1) mg/dl AST (15-37) U/L ALT (12-78) U/L Alkaline Phosphatase (45-117) U/L Troponin I (0-0.045) ng/ml Total Protein (6.4-8.2) gm/dl Albumin (3.4-5.0) gm/dl Globulin (2.5-4.0) gm/dl Albumin/Globulin Ratio (0.9-2) Triglycerides (0-150) mg/dl Cholesterol (0-200) mg/dl LDL Cholesterol, Calc mg/dl VLDL Cholesterol, Calc mg/dl HDL Cholesterol mg/dl Cholesterol/HDL Ratio Lipase (73-393) U/L TSH (0.300-4.500) uIu/ml Nasal Screen MRSA (PCR) (Negative) COVID-19 Eval Order SARS-CoV-2, RNA, NAAT (NEGATIVE) Medications Administered Current Inpatient Medications Acetaminophen (Acetaminophen 325 Mg Tab) 650 mg PO Q4H PRN PRN Reason: Pain or Fever Stop: 06/06/20 00:13 Amlodipine Besylate (Amlodipine Besylate 5 Mg Tab) 2.5 mg PO HS RYAN Stop: 06/06/20 00:29 Last Admin: 05/07/20 00:52 Dose: 2.5 mg Documented by: Docusate Sodium (Docusate Sodium 100 Mg Cap) 100 mg PO BID RYAN Stop: 06/06/20 08:59 Lorazepam (Ativan) 0.25 mg in 0.5 mls @ 0.5 mls/min IV Q4H PRN PRN Reason: Anxiety Stop: 06/06/20 00:13 Promethazine HCl 12.5 mg/ (Sodium Chloride) 50.5 mls @ 202 mls/hr IV Q6H PRN PRN Reason: Nausea And Vomiting Stop: 06/06/20 00:13 Potassium Chloride/Sodium Chloride (Normal Saline W/20 Meq Kcl) 20 meq in 1,000 mls @ 60 mls/hr IV .[id number] ONE Stop: 05/07/20 17:06 Last Admin: 05/07/20 00:52 Dose: 60 mls/hr Documented by: Levothyroxine Sodium (Levothyroxine Sodium 125 Mcg Tablet) 125 mcg PO DAILYBB [facility], 1928–1983 Stop: 06/06/20 06:29 Last Admin: 05/07/20 06:39 Dose: 125 mcg Documented by: Morphine Sulfate (Morphine Sulfate 4 Mg/Ml 1 Ml Carp\Vial) 4 mg IV Q4H PRN PRN Reason: Pain Stop: 05/21/20 00:13 Multivitamins (Multivitamin Tab) 1 tab PO DAILY [facility], [facility]1983 Stop: 06/06/20 08:59 Nitroglycerin (Nitroglycerin Sl 0.4 Mg/Tab Tab) 0.4 mg SL PRN PRN PRN Reason: Chest Pain Stop: 06/05/20 21:06 Oxycodone HCl (Oxycodone Hcl Ir 5 Mg Tab (Immediate Release)) 5 - 10 mg PO QID PRN PRN Reason: Pain Stop: 05/20/20 22:59 Pantoprazole Sodium (Pantoprazole 40 Mg Tab) 40 mg PO BID [facility], [facility] Stop: 06/06/20 08:59
--- NOTE | 2020-05-07 08:15 | CT Scan Report ---
CHEST CTA for PULMONARY ARTERIES CT DOSE: 189.82 mGy.cm HISTORY: Atypical chest pain. TECHNIQUE: Multiaxial CT images of the chest were performed following the intravenous administration of contrast to evaluate the pulmonary arteries. Maximal intensity projection images were also obtaine d. A dose lowering technique was utilized adhering to the principles of ALARA. COMPARISON STUDY: None. FINDINGS: Normal caliber thoracic aorta with no evidence for dissection. The heart is normal in size. No pleural or pericardial effusions. No filling defects within the pulmonary arteries to suggest pul monary embolus. No mediastinal hilar lymphadenopathy. Normal caliber esophagus. Recent cholecystectom y. This likely accounts for the small amount of pneumoperitoneum. The visualized liver and spleen are unremarkable. No suspicious lytic or blastic osseous lesions. Patchy and linear bibasilar densities most pronounced within the lower lobes. This favors atelectasis. A pneumonia could also have a simila r appearance. No pneumothorax. The central airways are patent. IMPRESSION: 1. No evidence for pulmonary embolus. 2. Patchy and linear bibasilar densities. This favors atelectasis. A pneumonia could also have a sindi lar appearance but is considered less likely. 3. Small amount of pneumoperitoneum. This is likely secondary to the recent cholecystectomy. ACT 112: Negative or not required by law. Electronically signed by: Brando Dodge M.D. 05/07/2020 8:14 AM
[2020-05-07] MEDS ORDERED: DOCUSATE SODIUM 100 MG CAP PO SCH (09:00)
[2020-05-07] MEDS ORDERED: ASPIRIN 81 MG ECTAB PO SCH (09:00)
[2020-05-07] MEDS ORDERED: PANTOprazole 40 MG TAB PO SCH (09:00)
[2020-05-07] MEDS ORDERED: MULTIVITAMIN TAB PO SCH (09:00)
--- NOTE | 2020-05-07 10:05 | Cardiology Consultation ---
Date of Consultation May 07, 2020 Assessment & Plan (1) Chest pain: 64-year-old female status post laparoscopic cholecystectomy who developed sharp substernal chest discomfort atypical for cardiac etiology likely reflecting hypertension and pneumoperitoneum postoperatively. Patient also has underlying esophageal pathology. No signs of myocardial injury or ischemia by EKG enzymes and echocardiogram. Recommendations: Would treat hypertension. Patient previously prescribed amlodipine would discharge on 5 mg/day as this may be beneficial for multiple aspects of care. Once patient recovers from above procedure she should be evaluated and treated for underlying hyperlipidemia given cardiovascular risk factors including rheumatoid arthritis, family history of coronary disease, hypertension No further cardiac testing warranted at this time (2) HTN (hypertension): (3) Dyslipidemia: (4) Mixed connective tissue disease: (5) CREST syndrome: History of Present Illness Reason for Consultation: Chest pain, hypertension Requesting Physician: Dr Gonzales Attending Physician: Ilan Gonzales MD History of Present Illness Patient is a 64-year-old female without prior history of cardiac disease his underlying issues include 1. Mixed connective tissue disease/rheumatoid arthritis with CREST syndrome. 2. Hypertension 3. Dyslipidemia Patient was referred for a hospitalization having undergone laparoscopic cholecystectomy yesterday. Patient post procedure developed nausea sharp chest pain and elevated blood pressure with headache and presented to the emergency room where she was found to be significantly hypertensive on presentation. She complained of severe headache as well as severe nausea with episode of projectile vomiting. EKG revealed sinus tachycardia only. Chest pain described as sharp and jabbing mid substernal area. Troponins negative CTA of the chest revealed atelectasis but no evidence of pulmonary emboli. Mild pneumoperitoneum as expected Patient this morning feels improved. Blood pressures are better controlled. She notes having been described having had blood pressure approximately 1 year ago begun on amlodipine for only transient period of time then discontinued. She denies any history rheumatic fever scarlet fever heart murmur. Notes no history of TIA or stroke. Notes no bleeding difficulties. Notes no melena medication dysuria hematuria. Appetite and weight are generally stable. Does have Raynaud's disease as well some esophageal dysmotility along with underlying MCTD Allergies Allergy/AdvReac Type Severity Reaction Status Date / Time No Known Allergies Allergy Unknown UNKNOWN Verified 05/06/20 20:22 Home Medications Medication Instructions Recorded Confirmed Type adalimumab [Humira Pen] 40 mg SUBCUT .Q2WK 05/06/20 05/06/20 History amlodipine 2.5 mg PO DAILY 05/06/20 05/06/20 History calcium carbonate-vitamin D3 1 tab PO DAILY 05/06/20 05/06/20 History [Calcium 600 + D(3)] docusate sodium [Colace] 100 mg PO BID 05/06/20 05/06/20 History levothyroxine [Levoxyl] 125 mcg PO DAILY 05/06/20 05/06/20 History multivitamin 1 tab PO DAILY 05/06/20 05/06/20 History oxycodone-acetaminophen 1 tab PO Q6H PRN 05/06/20 05/06/20 History pantoprazole 40 mg PO BID 05/06/20 05/06/20 History Patient History Medical History CREST syndrome Dyslipidemia Hypothyroidism Mixed connective tissue disease Rheumatoid arthritis Surgical History History of breast implant removal History of cholecystectomy History of colonoscopy Family History Other Heart disease Liver cancer Social History Smoking Status: Former smoker Smoking End Date: 2006; Hx Alcohol Use: Yes Alcohol type: wine Alcohol Intake Frequency: 2-3 x/Week Hx Substance Use: No Preferred Language: Panamanian Communication Ability: Effective Ammonia Operator Required: No Beliefs That Will Affect Care: None Current Living Situation: Spouse Other Information That Helps Us Care for You: No Feels Safe at Home: Yes Safety Concerns: Feels Safe At This Time Assistive Devices: None Review of Systems Review of Systems: All systems reviewed & are unremarkable except as noted in HPI & below Physical Exam Constitutional: WD/WN, vitals as above Eyes: PERRL, conjunctivae normal, anicteric sclerae ENMT: external ear and nose normal, oropharynx normal Neck: trachea midline, no thyromegaly Respiratory: normal respiratory effort, lungs clear to auscultation Cardiovascular: Rate/Rhythm: regular rate and regular rhythm Heart Sounds: normal S1 and normal S2; no gallop and no murmur Palpation: normal PMI Vessels: normal carotid upstroke and radial pulses present; no JVD and no carotid bruit Extremities: no edema Gastrointestinal (Abdomen): Inspection/Auscultation: normal bowel sounds Percussion/Palpation: abdomen soft Laparoscopic trocar access sites healing well without drainage Musculoskeletal: no cyanosis or clubbing, extremities motor strength 5/5 Skin: no rashes, warm and dry Neurologic: PERRL, EOMI, accommodation nl, no face palsy, no dysarthria Psychiatric: A+Ox3, euthymic affect Results & Data ([facility]) Vital Signs (Past 12 Hours) Vital Signs Temp Pulse Pulse Pulse Resp BP BP 05/07/20 08:00 80 05/07/20 07:53 36.9 C 89 20 142/77 H 05/07/20 04:12 36.8 C 05/07/20 04:11 70 16 117/65 05/07/20 01:12 66 18 123/77 05/07/20 00:17 36.7 C 83 20 154/90 H 05/07/20 00:12 80 19 154/90 H 05/07/20 00:01 77 16 119/79 05/06/20 23:31 86 16 05/06/20 22:33 82 16 BP Pulse Ox 05/07/20 08:00 05/07/20 07:53 89 L 05/07/20 04:12 05/07/20 04:11 96 05/07/20 01:12 97 05/07/20 00:17 97 05/07/20 00:12 98 05/07/20 00:01 94 05/06/20 23:31 130/87 95 05/06/20 22:33 140/92 97 Laboratory Results Laboratory Results - last 24 hr 05/06/20 05/06/20 05/06/20 19:20 19:20 19:20 WBC 8.70 RBC 4.66 Hgb 14.9 Hct 42.1 MCV 90.3 MCH 32.0 MCHC 35.4 RDW Std Deviation 39.5 RDW Coeff of Kristie 12.1 Plt Count 223 MPV 10.6 H Immature Gran % (Auto) 0.2 Neut % (Auto) 78.7 Lymph % (Auto) 17.4 [place] % (Auto) 3.7 Eos % (Auto) 0.0 Baso % (Auto) 0.0 Neut # (Auto) 6.85 H Lymph # (Auto) 1.51 [place] # (Auto) 0.32 Eos # (Auto) 0.00 Baso # (Auto) 0.00 Immature Gran # (Auto) 0.02 APTT 26.8 PTT Ratio 1.0 Sodium 136 Potassium 3.9 Chloride 102 Carbon Dioxide 25 Anion Gap 9.0 BUN 8 Creatinine 0.83 Est Cr Clr Drug Dosing 54.2 Est GFR ( Amer) 86.4 Est GFR (Non-Af Amer) 74.5 BUN/Creatinine Ratio 9.2 L Glucose 153 H Estimat Average Glucose Hemoglobin A1c Calcium 8.9 Magnesium Total Bilirubin 0.3 AST 50 H ALT 67 Alkaline Phosphatase 85 Troponin I 0.032 Total Protein 8.7 H Albumin 4.3 Globulin 4.4 H Albumin/Globulin Ratio 1.0 Triglycerides Cholesterol LDL Cholesterol, Calc VLDL Cholesterol, Calc HDL Cholesterol Cholesterol/HDL Ratio Lipase 45 L TSH Nasal Screen MRSA (PCR) COVID-19 Eval Order SARS-CoV-2, RNA, NAAT 05/06/20 05/06/20 05/06/20 19:20 21:14 21:14 WBC RBC Hgb Hct MCV MCH MCHC RDW Std Deviation RDW Coeff of Kristie Plt Count MPV Immature Gran % (Auto) Neut % (Auto) Lymph % (Auto) [place] % (Auto) Eos % (Auto) Baso % (Auto) Neut # (Auto) Lymph # (Auto) [place] # (Auto) Eos # (Auto) Baso # (Auto) Immature Gran # (Auto) APTT PTT Ratio Sodium Potassium Chloride Carbon Dioxide Anion Gap BUN Creatinine Est Cr Clr Drug Dosing Est GFR ( Amer) Est GFR (Non-Af Amer) BUN/Creatinine Ratio Glucose Estimat Average Glucose 120 Hemoglobin A1c 5.8 H Calcium Magnesium Total Bilirubin AST ALT Alkaline Phosphatase Troponin I Total Protein Albumin Globulin Albumin/Globulin Ratio Triglycerides Cholesterol LDL Cholesterol, Calc VLDL Cholesterol, Calc HDL Cholesterol Cholesterol/HDL Ratio Lipase TSH Nasal Screen MRSA (PCR) COVID-19 Eval Order Covid19 [email or web address] SARS-CoV-2, RNA, NAAT NEGATIVE 05/06/20 05/07/20 05/07/20 22:40 00:30 04:32 WBC 9.59 RBC 4.22 Hgb 13.5 Hct 38.2 MCV 90.5 MCH 32.0 MCHC 35.3 RDW Std Deviation 40.3 RDW Coeff of Kristie 12.1 Plt Count 238 MPV 10.4 Immature Gran % (Auto) 0.2 Neut % (Auto) 63.2 Lymph % (Auto) 26.4 [place] % (Auto) 10.0 Eos % (Auto) 0.1 Baso % (Auto) 0.1 Neut # (Auto) 6.06 Lymph # (Auto) 2.53 [place] # (Auto) 0.96 H Eos # (Auto) 0.01 Baso # (Auto) 0.01 Immature Gran # (Auto) 0.02 APTT PTT Ratio Sodium Potassium Chloride Carbon Dioxide Anion Gap BUN Creatinine Est Cr Clr Drug Dosing Est GFR ( Amer) Est GFR (Non-Af Amer) BUN/Creatinine Ratio Glucose Estimat Average Glucose Hemoglobin A1c Calcium Magnesium 1.9 Total Bilirubin AST ALT Alkaline Phosphatase Troponin I 0.030 Total Protein Albumin Globulin Albumin/Globulin Ratio Triglycerides Cholesterol LDL Cholesterol, Calc VLDL Cholesterol, Calc HDL Cholesterol Cholesterol/HDL Ratio Lipase TSH 0.688 Nasal Screen MRSA (PCR) Negative COVID-19 Eval Order SARS-CoV-2, RNA, NAAT 05/07/20 04:32 WBC RBC Hgb Hct MCV MCH MCHC RDW Std Deviation RDW Coeff of Kristie Plt Count MPV Immature Gran % (Auto) Neut % (Auto) Lymph % (Auto) [place] % (Auto) Eos % (Auto) Baso % (Auto) Neut # (Auto) Lymph # (Auto) [place] # (Auto) Eos # (Auto) Baso # (Auto) Immature Gran # (Auto) APTT PTT Ratio Sodium 138 Potassium 4.3 Chloride 105 Carbon Dioxide 29 Anion Gap 4.0 BUN 7 Creatinine 0.79 Est Cr Clr Drug Dosing 62.7 Est GFR ( Amer) 91.7 Est GFR (Non-Af Amer) 79.1 BUN/Creatinine Ratio 9.1 L Glucose 101 H Estimat Average Glucose Hemoglobin A1c Calcium 8.7 Magnesium Total Bilirubin AST ALT Alkaline Phosphatase Troponin I Total Protein Albumin Globulin Albumin/Globulin Ratio Triglycerides 171 H Cholesterol 222 H LDL Cholesterol, Calc 142 VLDL Cholesterol, Calc 34 HDL Cholesterol 46 Cholesterol/HDL Ratio 5 Lipase TSH Nasal Screen MRSA (PCR) COVID-19 Eval Order SARS-CoV-2, RNA, NAAT Diagnostic Findings Echocardiogram 05/07/2020: Normal left her size and function with mild left hypertrophy and no valvular disease
--- NOTE | 2020-05-07 11:39 | Discharge Summary ---
Date of Service May 07, 2020 Admission HPI Per Admitting Provider This is a 64-year-old female with PMH of mixed connective tissue disorder, rheumatoid arthritis, crest syndrome, hypothyroidism, dyslipidemia and cholecystectomy performed earlier today who presents with chest pain. Underwent laparoscopic cholecystectomy earlier today at outpatient surgery center in [facility]. Was resting at home this afternoon when took her blood pressure and noted it was elevated. Developed left-sided sharp 7/10 chest pain without radiation that was constant. Took a tylenol and percocet with some improvement. Also took 2.5mg Amlodipine that she had been prescribed awhile ago for episodes of high BP. Also noted headache, lightheadedness and nausea. Had 3 episodes of emesis, including 1 in triage of ED. States she is had chest pain like this intermittently in the past and usually occurs at rest. Also with history of heartburn but states this is different. No known history of CAD. + Family history of heart disease in grandfather. Former smoker, quit in 2006. Denies fever, chills, near syncope, palpitations, shortness of breath, dysuria, diarrhea or constipation. In ED, given aspirin 324, 0.5 mg IV Dilaudid, nitroglycerin, Zofran and 500 mL normal saline with resolution of pain. No leukocytosis. Hemoglobin stable. Initial troponin 0 0.032. EKG with sinus tachycardia 105 with possible left atrial enlargement and LVH. Admission Exam Per Admitting Provider General Appearance: WD/WN, vitals as above, appears uncomfortable, sitting up in bed, conversing easily Head: normocephalic, atraumatic Eyes: normal inspection, PERRL, conjunctivae normal, anicteric sclerae ENT: external ear and nose normal, oropharynx normal Neck: normal visual inspection, trachea midline, no thyromegaly Respiratory: normal respiratory effort, lungs clear to auscultation, no wheeze, rales, rhonchi. No accessory muscle use Cardiovascular: regular rate, rhythm, no murmur, normal peripheral pulses, no BLE edema. Vessels: no JVD Chest: normal inspection of chest, no chest tenderness to palpation Abdomen/GI: normal bowel sounds, soft, no hepatosplenomegaly. + Small laparoscopic incisions with dressings in place Extremities/Musculoskeletal: no cyanosis or clubbing, extremities motor strength 5/5 Neurologic: PERRL, EOMI, accommodation nl, no face palsy, no dysarthria, CN's II-XI intact bilaterally and moves all extremities Psychiatric: A+Ox3, anxious Skin: no rashes, normal color, warm/dry Principal Diagnosis Atypical chest pain Hypertension s/p cholecystectomy Hyperlipidemia Discharge Exam General Appearance: WD/WN, in NAD, sitting up in bed, conversing easily Head: normocephalic, atraumatic Eyes: normal inspection, PERRL, EOMI, conjunctivae normal, anicteric sclerae ENT: external ear and nose normal, oropharynx normal Neck: normal visual inspection, trachea midline, no thyromegaly Respiratory: normal respiratory effort, lungs clear to auscultation, no wheeze, rales, rhonchi. No accessory muscle use Cardiovascular: regular rate, rhythm, no murmur, normal peripheral pulses, no BLE edema. Vessels: no JVD Chest: normal inspection of chest, no chest tenderness to palpation Abdomen/GI: normal bowel sounds, soft, + Small laparoscopic incisions with dressings in place Extremities/Musculoskeletal: no cyanosis or clubbing, extremities motor strength 5/5 Neurologic: PERRL, EOMI, no face palsy, no dysarthria, CN's II-XI intact bilaterally and moves all extremities Psychiatric: A+Ox3, anxious Skin: no rashes, normal color, warm/dry Discharge Data Allergies Allergy/AdvReac Type Severity Reaction Status Date / Time No Known Allergies Allergy Unknown UNKNOWN Verified 05/06/20 20:22 Consultations 05/06/20 20:58 ED Decision to Admit Stat 05/07/20 00:14 Consult Cardiology Routine Ordered Studies 05/06/20 22:37 CT angio chest PE protocol Urgent IMPRESSION: 1. No evidence for pulmonary embolus. 2. Patchy and linear bibasilar densities. This favors atelectasis. A pneumonia could also have a similar appearance but is considered less likely. 3. Small amount of pneumoperitoneum. This is likely secondary to the recent cholecystectomy. CT head/brain wo con Urgent FINDINGS: No acute intracranial hemorrhage, midline shift, intracranial mass, hydrocephalus, territorial ischemia or abnormal extra-axial collection. Mild age-related involutional changes. The calvarium is intact. Trace mastoid effusions. Mild mucosal thickening of the ethmoid air cells. Skull and soft tissues are unremarkable. IMPRESSION: No acute intracranial abnormality. Hospital Course (1) Chest pain: (2) S/P cholecystectomy: (3) Dyslipidemia: (4) Rheumatoid arthritis: (5) Mixed connective tissue disease: (6) CREST syndrome: (7) Hypothyroidism: This is a 64-year-old female with PMH of mixed connective tissue disorder, rheumatoid arthritis, crest syndrome, hypothyroidism, dyslipidemia and cholecystectomy performed earlier today who presents with chest pain. Chest pain plus minimal troponin elevation Secondary to hypertensive crisis hx HTN diagnosed last month. Patient stopped amlodipine 2 weeks ago because of blood pressure was already controlled. TTE, Cardiology consult, chest pain with troponin elevation Echo obtained and reviewed -left ventricle is normal in size. Mild concentric LVH. LV wall motion is normal. EF 60 to 65%. There is no valvular disease. No pericardial effusion. Resume Amlodipine Rx. Per tour agent recommendation - will d/c on 5 mg amlodipine daily Hyperlipidemia - TC 222 - LDL 142 - recommend to follow up on HLD w/ outpt provider once pt recovers from surgery Headache secondary to uncontrolled hypertension, now resolved MCTD (history rheumatoid arthritis, CREST) Recent cholecystectomy, follow up as per surg. recommendations Hyperglycemia, rule out DM Current hemoglobin A1c 5.8%, c/w prediabetes - follow up w/ PCP Past tobacco abuse Total Time Total Time Spent Total Time Spent (In Minutes): 35 Total Time Includes: Examination of the Patient, Discharge Planning, Medication Reconciliation and Communication With Other Providers Discharge Plan Discharge Items Patient Disposition: Home - Self-Care Reason For Visit: CHEST PAIN Discharge Diagnosis: Atypical chest pain Hypertension s/p cholecystectomy Hyperlipidemia Activity: Per Instructions section Non-emergency contact: Primary Care Provider Call non-emergency contact if: you have any medication questions Follow-up/Referrals: Michael Cristobal MD [Primary Care Provider] - Diet: Heart Healthy Addtl Attending Provider Instructions: Follow up with primary care physician in 1 -2 weeks. Start taking amlodipine 5 mg daily. Monitor your blood pressure at home if you can and write down your numbers. Let your physicians know what your blood pressure is at home. You will further need to discuss hyperlipidemia (high cholesterol) with your doctor. Pending Studies at Discharge: No Stand-Alone Forms: My zlien, Smoking Cessation Medications and DC Order Prescriptions: New amlodipine 5 mg tablet 5 mg PO DAILY Qty: 30 RF: 0 Continued multivitamin Tablet 1 tab PO DAILY RF: 0 calcium carbonate-vitamin D3 [Calcium 600 + D(3)] 600 mg(1,500mg) -200 unit Tablet 1 tab PO DAILY RF: 0 pantoprazole 40 mg tablet,delayed release (DR/EC) 40 mg PO BID RF: 0 levothyroxine [Levoxyl] 125 mcg tablet 125 mcg PO DAILY RF: 0 Humira Pen 40 mg/0.8 mL pen injector kit 40 mg SUBCUT .Q2WK RF: 0 oxycodone-acetaminophen 5-325 mg Tablet 1 tab PO Q6H PRN (Reason: Pain) RF: 0 docusate sodium [Colace] 100 mg Capsule 100 mg PO BID RF: 0 Changed amlodipine 2.5 mg tablet 5 mg PO DAILY Qty: 0 RF: 0 Discharge Orders: Discharge Order (Routine); Ordered 05/07/20 Ordered By: Ilan Gonzales Admission Data Admit Date/Time: 05/06/20 23:40 Attending Provider: Ilan Gonzales Admit Provider: Aldo Trent Primary Care Provider: Michael Cristobal Other Providers: Aldo Trent ; Simón Martinez ; Damian Nazario ; Jesus Zaman ; Quinton Matute ; Vipin Guevara ; Abimael Chaidez ; Sophia Ochoa ; Eliasbeth Salmeron ; Ney Pastor
--- NOTE | 2020-05-07 15:57 | Electrocardiogram Report ---
Test Reason : Blood Pressure : / mmHG Vent. Rate : 105 BPM Atrial Rate : 105 BPM P-R Int : 158 ms QRS Dur : 074 ms QT Int : 356 ms P-R-T Axes : 043 -22 081 degrees QTc Int : 470 ms Sinus tachycardia Possible Left atrial enlargement Left ventricular hypertrophy Abnormal ECG When compared with ECG of 10-JAN-2009 18:16, Vent. rate has increased BY 39 BPM Nonspecific T wave abnormality now evident in Lateral leads QT has lengthened Confirmed by Eusebio Dos Santos ([id number]) on 05/07/2020 3:57:31 PM Referred By: REFERRED SELF Confirmed By:Eusebio Dos Santos
--- NOTE | 2020-05-07 16:14 | Electrocardiogram Report ---
Test Reason : Blood Pressure : / mmHG Vent. Rate : 072 BPM Atrial Rate : 072 BPM P-R Int : 136 ms QRS Dur : 078 ms QT Int : 398 ms P-R-T Axes : 006 002 054 degrees QTc Int : 435 ms Normal sinus rhythm Normal ECG When compared with ECG of 06-MAY-2020 19:17, (unconfirmed) No significant change was found Confirmed by Eusebio Dos Santos ([id number]) on 05/07/2020 4:13:56 PM Referred By: REFERRED SELF Confirmed By:Eusebio Dos Santos
== END 2020-05-07 12:24 | disposition home or self-care (01) ==
LOC: 1E 19:05 → ED 19:05 → 1E 05-07 00:01